=== PATIENT | male | born 1955 | race Caucasian/White ===

== ENCOUNTER 2021-11-10 08:36 | Emergency (ER) | payer OTHER, SELFPAY ==
--- NOTE | ~2021-11-10 | XR_ITS ---
EXAMINATION: XR RIBS, LEFT CLINICAL INFORMATION: Left anterolateral rib pain after fall. History of broken ribs. COMPARISON: None TECHNIQUE: 3 views of the left ribs were obtained. Chest one view FINDINGS: The lungs are hypoexpanded but clear. The heart size enlarged. Pulmonary vascularity is normal. Multiple views of left ribs reveal old healed fractures left 10th, ninth, eighth, seventh ribs. No acute fracture or lytic process seen. XR/XR ribs LT min 3V w CXR1V IMPRESSION: Hypoinflated lungs without acute process. Old healed left seventh through 10th rib fractures. No acute fractures seen.
[2021-11-10 08:45] VITALS: BP 134/88; PULSE 70; RESP 20; TEMP 36.7; O2SAT 99; BMI 29.5
--- NOTE | 2021-11-10 09:11 | ED_ITS ---
HPI - Fall General Chief Complaint: Fall Stated Complaint: L RIB PAIN AND INJURY S/P FALL @ WORK Time Seen by Provider: 11/10/21 08:56 Source: patient and EMS Mode of arrival: EMS Limitations: no limitations History of Present Illness HPI Narrative: 66-year-old male with a history of diabetes, diabetic neuropathy, high cholesterol, hypertension, GERD here with reports of left sided rib pain s/p trip and fall landing on left side. No head strike or loss of consciousness. No anticoagulation use, patient reports to the left chest wall pain. No abdominal pain, vomiting, difficulty breathing. Related Data Previous Rx's Medication Instructions Recorded lidocaine 5 % topical patch 1 patch TOPICAL DAILY #15 ea 11/10/21 (Lidoderm) oxycodone 5 mg tablet 5 mg PO Q6H PRN #10 tab 11/10/21 Allergies Allergy/AdvReac Type Severity Reaction Status Date / Time No Known Allergies Allergy Verified 11/10/21 09:00 Review of Systems Verdana 4l Review of Systems: Yes all other systems are reviewed and Verdana 4d are negative Verdana 4l Constitutional: Verdana 4d Constitutional: Verdana 4d Verdana 4d Reports no additional constitutional complaints, Denies body ache(s), Denies chills, Denies fever(s), Denies headache(s) and Denies weakness Verdana 4l Eyes: Verdana 4d Verdana 4d Eyes: Verdana 4d Reports no additional eye complaints and Denies change in vision Verdana 4l ENT: Verdana 4d Reports system reviewed and no additional complaints, except as documented, Denies dizziness, Denies headache(s), Denies nasal congestion, Denies nasal discharge and Denies neck pain Verdana 4l Cardiovascular: Verdana 4d Cardiovascular: Verdana 4d Verdana 4d Reports no additional cardiovascular complaints, Reports chest pain, Denies leg edema and Denies dyspnea Verdana 4l Respiratory: Verdana 4d Verdana 4d Respiratory: Verdana 4d Reports no additional respiratory complaints, Denies cough and Denies dyspnea Verdana 4l Gastrointestinal: Verdana 4d Gastrointestinal: Verdana 4d Verdana 4d Reports no additional gastrointestinal complaints, Denies abdominal pain, Denies diarrhea, Denies nausea and Denies vomiting Verdana 4l Genitourinary: Verdana 4d Verdana 4d Genitourinary: Verdana 4d Denies urinary incontinence Verdana 4l Musculoskeletal: Verdana 4d Musculoskeletal: Verdana 4d Verdana 4d Reports no additional musculoskeletal complaints, Denies back pain, Denies arthralgias, Denies joint swelling, Denies neck pain, Denies numbness and Denies tingling Verdana 4l Integumentary/Breasts: Verdana 4d Skin/Breast: Verdana 4d Verdana 4d Reports system reviewed and no additional complaints, except as docu and Denies rash Verdana 4l Neurologic: Verdana 4d Reports system reviewed and no additional complaints, except as documented, Denies Abnormal speech present, Denies dizziness, Denies headache(s), Denies numbness, Denies tingling and Denies weakness PMFSH Past Medical History Attestation statement: The following information was validated with the patient. Source: old records reviewed and nursing notes reviewed Medical History Diabetes Surgical History H/O heart artery stent Social History Social History Alcohol intake: never Smoked in Last 30 Days: No Use of substances other than those prescribed or required for medical reasons: No Advance Directives: Yes Advance Directives Information Provided: Yes Advance Directives on File: No Physical Exam Verdana 4l Vital Signs: Verdana 4d Verdana 4d Vital Signs: Verdana 4d Verdana 4Bd Last Vital Signs Verdana 4d Car Icer New 4d Car Icer New 4d Temp 98.1 F 11/10/21 08:45 Car Icer New 4d Pulse 70 11/10/21 08:45 Car Icer New 4d Resp 20 11/10/21 08:45 BP 134/88 11/10/21 08:45 Pulse Ox 99 11/10/21 08:45 BMI result Body Mass Index 29.5 Const: General: cooperative, healthy appearing, comfortable and no acute distress Orientation/consciousness: patient oriented x3 Limitations: no limitations HENMT: Head: Yes normal to inspection Ears: hearing grossly normal bilaterally General nose exam: Normal external nose present Face and sinus: Yes normal facial exam Mouth: Normal oral and palatal mucosa present Throat: Yes posterior oropharynx normal Eyes: General: appearance normal, both eyes and all related structures Pupils: Equal, round and reactive pupils present Neck: Neck: Yes normal visual inspection and Yes full ROM Chest: Other: Tenderness to the left lateral chest wall with no ecchymosis, crepitus or deformity Chest palpation & inspection: normal inspection of the chest Resp: Effort & Inspection: normal respiratory effort Auscultation: clear to auscultation bilaterally Cardio: Rate: regular rate Rhythm: regular rhythm Peripheral pulses: Peripheral pulses 2+ throughout GI: Inspection: Yes normal to inspection Palpation (GI): Soft to palpation and nontender Auscultation: normal bowel sounds Back/Spine/Pelvis: Thoracic/Lumbar Spine: thoracic and lumbar spine normal to inspection Skin: General skin exam: no rashes or lesions noted Neuro: General: patient oriented x3, no focal motor deficits and normal sensation to monofilament Cranial nerves: Yes Equal, round and reactive pupils present Cognition (Neuro): normal cognition Speech: No Abnormal speech present Gait exam (Neuro): Normal gait present Motor exam (neuro): 5/5 motor strength present throughout Extrem: General: Yes normal to inspection Course Course Course Narrative: 66-year-old male here with left chest wall pain after mechanical fall which occurred at work. No head strike or loss of consciousness. Vitals are stable. No abdominal pain. No obvious chest wall deformity, crepitus or ecchymosis. There is tenderness over the left chest wall. Will check x-rays, provide analgesia and reassess 1100-pain is improved. X-ray show Old healed left seventh through 10th rib fractures. No acute fractures seen. Reviewed findings with the patient. May be occult rib fracture but we discussed that it would not change the course of care. Will refer to our connection for follow-up. The patient has no symptoms spirometer at home which recommended that he use for the next few weeks. Reviewed worrisome signs and symptoms of when to return to the emergency department. Comfortable discharge home. MDM - Fall Medical Records Attestation: I reviewed the patient's medical records. Lab Data Attestation: I reviewed the patient's lab results. Discharge Plan Discharge Clinical Impression: Contusion of rib on left side Patient Disposition: Home, Self-Care Instructions: Rib Contusion (ED) Additional Instructions: Your x-ray show 4 old rib fractures. It is difficult to determine if these also may have a small new fracture Ice Use your incentive spirometer every hour while awake Use a pillow for splinting as needed Follow-up with WORK connection Prescriptions: New lidocaine [Lidoderm] 5 % adhesive patch,medicated 1 patch topical DAILY Qty: 15 0RF Rx Instructions: leave on most painful area for up to 12 hrs oxycodone 5 mg tablet 5 mg PO Q6H PRN (Reason: pain) Qty: 10 0RF Stand Alone Forms: Work/School Release Interventions: ED Discharge Assessment Last Done: 11/10/21 10:56 Discharge Date/Time: 11/10/21 10:56
[2021-11-10] MEDS: Lidocaine 4 % Patch ADH..PATCH 1 PATCH TRANSDERMA (09:23)
[2021-11-10] MEDS: Acetaminophen 325 MG TABLET 650 MG PO (09:24)
[2021-11-10] MEDS: oxyCODONE HCl Immed Release 5 MG TABLET PO (09:24)
== END 2021-11-10 10:56 | disposition home or self-care (01) ==
PROVIDERS: Emergency Provider Emergency Medicine Emergency Medical Services
DX: S20.212A Contusion of left front wall of thorax, initial encounter (principal); W01.0XXA Fall on same level from slipping, tripping and stumbling without subsequent striking against object, initial encounter; E11.9 Type 2 diabetes mellitus without complications; E78.5 Hyperlipidemia, unspecified; I10 Essential (primary) hypertension; Y93.89 Activity, other specified; Y92.410 Unspecified street and highway as the place of occurrence of the external cause; Y99.0 Civilian activity done for income or pay
CPT/HCPCS: 71101; 99283; 99284